=== PATIENT | female | born 1950 | race Caucasian/White ===

== ENCOUNTER 2021-08-09 05:21 | Emergency (ER) | payer OTHER ==
[2021-08-09 06:17] LABS: BASOPHIL 0.6 % (0-2); EOSINOPHIL 1.2 % (0-7); HCT 34.3 % (37.0-47.0); HGB 11.5 g/dl (12.5-16.0); LYMPHOCYTE 10.8 % (15-48); MCHC 33.5 g/dL (32.0-36.0); MCV 83.5 fL (78.0-100.0); MONOCYTE 8.3 % (0-12); MPV 9.5 fL (6.0-9.5); NEUTROPHIL 78.5 % (41-80); NRBC 0; PLT 262 K/uL (150-400); RBC 4.11 M/uL (4.20-5.40); RDW 14.8 % (11.5-14.0); WBC 10.2 K/uL (4.0-10.5)
[2021-08-09 06:42] LABS: ALBUMIN 3.7 g/dL (3.4-5.0); BILIRUBIN - TOTAL 0.3 mg/dL (0.2-1.0); BUN/CREAT RATIO (CALC) 18.1 RATIO; CREATININE 0.83 mg/dL (0.51-0.95); GLOBULIN (CALCULATION) 3.5 g/dL; TOTAL PROTEIN 7.2 g/dL (6.4-8.2)
[2021-08-09] MEDS ORDERED: NORCO 5-325 TA1 EACH PO (09:02)
== END 2021-08-09 09:49 | disposition home or self-care (01) ==
LOC: FER 05:21
PROVIDERS: Emergency Medicine
DX: S82.832A Other fracture of upper and lower end of left fibula, initial encounter for closed fracture (principal); S82.842A Displaced bimalleolar fracture of left lower leg, initial encounter for closed fracture; K21.9 Gastro-esophageal reflux disease without esophagitis; Z20.822 Contact with and (suspected) exposure to COVID-19; Z79.899 Other long term (current) drug therapy; W19.XXXA Unspecified fall, initial encounter; Y93.01 Activity, walking, marching and hiking; Y92.009 Unspecified place in unspecified non-institutional (private) residence as the place of occurrence of the external cause
CPT/HCPCS: 27810; 36415; 70450; 71045; 73600; 80053; 84484; 85025; 93005; 96374; 96375; 96376; J1170; J2405; J7030; U0002